=== PATIENT | female | born 1970 | race African-American/Black ===

== ENCOUNTER 2020-02-14 19:24 | Emergency (ER) | payer MEDICARE, OTHER ==
--- NOTE | 2020-02-14 19:31 | ED Physician Documentation ---
PD HPI NECK PAIN - Stated complaint Stated Complaint: LT SIDE NECK PX - History obtained from History obtained from: Patient - History of Present Illness Timing - onset: Today (onset of some left sided lateral neck pain last night and into this morning. No noted injury acutely. Is visiting family from out of state, so different bed/pillow/etc. Was doing some light lifting of bags/etc. No radiation to arm, nor any arm numbness/weakness.), Last night Timing - duration: Days (1) Timing - details: Gradual onset, Still present (worse this evening and with moving neck), Waxing and waning Location: Left (to side of neck in SCM muscle area.) Quality: Pain, Spasm Associated symptoms: No: Fever, Weakness, Numbness Worsened by: Movement, Palpation Contributing factors: Lifting. No: Trauma Similar symptoms before: Has not had sx before (fibromyalgia but not usually with neck pain) Recently seen: Not recently seen Review of Systems Constitutional: reports: Myalgias. denies: Fever, Chills, Fatigue Nose: denies: Rhinorrhea / runny nose, Congestion Throat: denies: Sore throat Cardiac: denies: Chest pain / pressure Respiratory: denies: Cough GI: denies: Abdominal Pain, Vomiting Skin: denies: Rash, Lesions Neurologic: denies: Focal weakness, Numbness, Headache PD PAST MEDICAL HISTORY - Past Medical History Cardiovascular: None Respiratory: None Neuro: None Musculoskeletal: Fibromyalgia - Present Medications Home Medications: Ambulatory Orders Medication Instructions Recorded Confirmed Carvedilol [Coreg] 25 mg PO BID 02/14/20 02/14/20 Gabapentin [Neurontin] 800 mg PO TID 02/14/20 02/14/20 HYDROcodone/ACET 10/325 [Camby 10 1 each PO BID PRN #15 tablet 02/14/20 mg/325 mg] HYDROcodone/ACET 10/325 [Camby 10 1 tab PO TID 02/14/20 02/14/20 mg/325 mg] Insulin Aspart [NovoLOG] 28 units SUBQ TID 02/14/20 02/14/20 Insulin Glargine/Lixisenatide 60 units SUBQ QPM 02/14/20 02/14/20 [Soliqua 100 Unit-33 Mcg/ml Pen] Lidocaine Patch 5% [Lidoderm Patch] 1 each TOP DAILY PRN #10 patch 02/14/20 Omeprazole 40 mg PO DAILY 02/14/20 02/14/20 Potassium Chloride [K-Dur] 20 meq PO DAILY 02/14/20 02/14/20 Ranolazine [Ranolazine ER] 500 mg PO BID 02/14/20 02/14/20 Sacubitril/Valsartan [Entresto 97 1 tab PO BID 02/14/20 02/14/20 mg-103 mg Tablet] Spironolactone [Aldactone] 25 mg PO DAILY 02/14/20 02/14/20 Zolpidem Tartrate [Ambien] 10 mg PO QPM 02/14/20 02/14/20 tiZANidine [Zanaflex] 4 mg PO Q8H PRN #25 tablet 02/14/20 - Allergies Allergies/Adverse Reactions: Allergies Allergy/AdvReac Type Severity Reaction Status Date / Time acetaminophen [From Percocet] Allergy Anaphylaxis Verified 02/14/20 19:28 oxycodone [From Percocet] Allergy Anaphylaxis Verified 02/14/20 19:28 PD ED PE NORMAL - Vitals Vital signs reviewed: Yes - General General: Alert and oriented X 3, Well developed/nourished - HEENT HEENT: Ears normal, Moist mucous membranes - Neck Neck: Supple, no meningeal sign, No bony TTP, No adenopathy, Other (tender in SCM muscle left side from side of neck to mid clavicle. No redness, rash nor sores. No vertebral area tenderness. ) - Derm Derm: Normal color, Warm and dry, No rash - Neuro Neuro: Alert and oriented X 3, No motor deficit, No sensory deficit Results - Vitals Vitals: Vital Signs - 24 hr 02/14/20 02/14/20 19:28 21:06 Temperature 36.5 C 36.3 C L Heart Rate 106 H 86 Respiratory 16 15 Rate Blood Pressure 160/100 H 174/96 H O2 Saturation 100 95 Oxygen O2 Source Room air PD MEDICAL DECISION MAKING - ED course Complexity details: reviewed old records, considered differential (chronic pain meds for fibromyalgia and now with acute neck muscle strain/spasm. Is visiting from out of town. Concerning for opiate overuse, so watch for repeat visits if still in town. Leaving . ), d/w patient Departure - Departure Disposition: 01 Home, Self Care Clinical Impression: Strain of neck muscle Qualifiers: Encounter type: initial encounter Qualified Code(s): S16.1XXA - Strain of muscle, fascia and tendon at neck level, initial encounter Condition: Stable Record reviewed to determine appropriate education?: Yes Instructions: ED Sprain Strain Neck Prescriptions: Lidocaine Patch 5% [Lidoderm Patch] 1 each TOP DAILY PRN #10 patch PRN Reason: Pain HYDROcodone/ACET 10/325 [Camby 10 mg/325 mg] 1 each PO BID PRN #15 tablet PRN Reason: Pain tiZANidine [Zanaflex] 4 mg PO Q8H PRN #25 tablet PRN Reason: Spasms Comments: Use your usual Hydrocodone but can increase to every 4-6 hours for the next several days to account for new injury atop your baseline pain meds. Add Tizanidine muscle relaxant as needed for stiffness and spasms. Lidocain patch to the area hurting will help as well. Recheck if not improved over the next several days. Recheck if worse or other symptoms with this. Discharge Date/Time: 02/14/20 21:10
[2020-02-14] MEDS ORDERED: HYDROmorphone 2 MG/ML VIAL IM STA (20:17)
[2020-02-14] MEDS ORDERED: methocarbamoL 500 MG TABLET PO STA (20:17)
[2020-02-14] MEDS ORDERED: LIDOCAINE PATCH 5% TOP STA (20:23)
[2020-02-14 21:10] VITALS: BP 174/96
== END 2020-02-14 21:10 | disposition home or self-care (01) ==
LOC: ED 19:24
DX: S16.1XXA Strain of muscle, fascia and tendon at neck level, initial encounter (principal); X50.0XXA Overexertion from strenuous movement or load, initial encounter; Y93.89 Activity, other specified; Y92.512 Supermarket, store or market as the place of occurrence of the external cause; M79.7 Fibromyalgia; Z79.891 Long term (current) use of opiate analgesic
CPT/HCPCS: 96372; 99283; 99284; A9270; J1170